=== PATIENT | male | born 2000 | race Caucasian/White ===

== ENCOUNTER 2020-03-14 11:28 | Outpatient (CLI) | payer OTHER ==
--- NOTE | 2020-03-14 13:39 | RAD ---
LUMBAR SPINE SERIES WITH FLEXION AND EXTENSION TOTAL OF 4 VIEWS: Date: 03/14/2020 HISTORY: Low back pain. FINDINGS: The vertebral bodies are normal in height. Disc spaces are all relatively well preserved. There is sp ondylolisthesis of L5 on S1 of approximately 9 mm. There is degenerative facet change, but there also appear to be pars defects associated with this. The spondylolisthesis becomes minimally accentuated on the flexion view and slightly reduced on the extension. IMPRESSION: Spondylolisthesis of L5 on S1, as discussed above. POS: [place]
== END 2020-03-14 11:29 | disposition home or self-care (01) ==
LOC: BICRAD 11:28
PROVIDERS: ATTEND Specialist
DX: M51.17 Intervertebral disc disorders with radiculopathy, lumbosacral region (principal); M43.17 Spondylolisthesis, lumbosacral region
CPT/HCPCS: 72110